=== PATIENT | male | born 1990 ===

== ENCOUNTER 2017-08-27 17:27 | Inpatient (IN) | payer OTHER ==
[2017-08-27] MEDS ORDERED: Sodium Chloride 0.9% 1,000 ML IV STA ×2 (18:25→18:46)
--- NOTE | 2017-08-27 18:47 | ED PDOC ---
HPI:Nausea, Vomiting, Diarrhea Time Seen by Provider: 08/27/17 18:25 Chief Complaint (Nursing): Abdominal Pain Chief Complaint (Provider): Fevers, Chill and Nausea History Per: Patient History/Exam Limitations: no limitations Onset/Duration Of Symptoms: Days (x4 days) Current Symptoms Are (Timing): Still Present Associated Symptoms: Fever, Chills, Nausea, Vomiting (x2 episodes). denies: Diarrhea Additional Complaint(s): Parish Stevenson, a 27 year old male, presents to the ED for fever, chills and nausea x4 days. The patient states that he is also experiencing some mild epigastric pain and has 2 episodes of vomiting. Denies diarrhea, cough, neck pain. Patient requests a note for work. Past Medical History Reviewed: Historical Data, Nursing Documentation, Vital Signs Vital Signs: Last Vital Signs Temp 102.2 F H 08/27/17 18:06 Pulse 112 H 08/27/17 18:06 Resp 16 08/27/17 18:06 BP 174/119 H 08/27/17 18:06 Pulse Ox 98 08/27/17 18:06 - Medical History PMH: No Chronic Diseases - Surgical History Surgical History: No Surg Hx - Family History Family History: States: Unknown Family Hx - Allergies Allergies/Adverse Reactions: Allergies Allergy/AdvReac Type Severity Reaction Status Date / Time No Known Allergies Allergy Verified 08/27/17 18:10 Review of Systems ROS Statement: Except As Marked, All Systems Reviewed And Found Negative Constitutional: Positive for: Fever, Chills Respiratory: Negative for: Cough Gastrointestinal: Positive for: Nausea, Vomiting (x2 episodes), Abdominal Pain ( mild epigastric pain). Negative for: Diarrhea Musculoskeletal: Negative for: Neck Pain Physical Exam - Reviewed Nursing Documentation Reviewed: Yes Vital Signs Reviewed: Yes - Physical Exam Appears: Positive for: Non-toxic, No Acute Distress Head Exam: Positive for: ATRAUMATIC, NORMAL INSPECTION, NORMOCEPHALIC Skin: Positive for: Warm, Dry. Negative for: Normal Color (Skin appears flushed in face ), Rash Eye Exam: Positive for: Normal appearance, EOMI, PERRL. Negative for: Nystagmus ENT: Positive for: Normal ENT Inspection. Negative for: Nasal Congestion, Tonsillar Exudate, Tonsillar Swelling Neck: Positive for: Normal, Painless ROM, Supple Cardiovascular/Chest: Positive for: Regular Rate, Rhythm, Chest Non Tender. Negative for: Tachycardia Respiratory: Positive for: Normal Breath Sounds. Negative for: Crackles, Rales , Rhonchi, Wheezing, Respiratory Distress Gastrointestinal/Abdominal: Positive for: Normal Exam, Bowel Sounds, Soft. Negative for: Tenderness, Mass, Guarding, Rebound Back: Positive for: Normal Inspection. Negative for: L CVA Tenderness, R CVA Tenderness Extremity: Positive for: Normal ROM. Negative for: Tenderness, Deformity, Swelling Lymphatic: Positive for: Normal Exam. Negative for: Adenopathy Neurologic/Psych: Positive for: Alert, Oriented, Gait - Laboratory Results Result Diagrams: 08/27/17 18:58 08/27/17 18:58 - ECG O2 Sat by Pulse Oximetry: 98 - Progress ED Course And Treament: NS 2 LITERS ORDERED. REPEAT BS 272 VBG REVIEWED WITH . 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 Provider Attestation All medical record entries made by the Scribe were at my direction and personally dictated by me. I have reviewed the chart and agree that the record accurately reflects my personal performance of the history, physical exam, medical decision making, and the department course for this patient. I have also personally directed, reviewed, and agree with the discharge instructions and disposition. Disposition - Clinical Impression Clinical Impression: Diabetes mellitus, new onset - Patient ED Disposition Is Patient to be Admitted: Yes - Disposition Disposition Time: 20:12 Condition: FAIR Forms: Spyder Lynk (Hungarian) - Pt Status Changed To: Hospital Disposition Of: Inpatient - Admit Certification Admit to Inpatient:: After my assessment, the patient will require hospitalization for at least two midnights. This is because of the severity of symptoms shown, intensity of services needed, and/or the medical risk in this patient being treated as an outpatient.
[2017-08-27 18:58] LABS: RBC URINE 2 /hpf (0-3); URINE BILIRUBIN NEGATIVE (NEGATIVE); URINE BLOOD SMALL (NEGATIVE); URINE COLOR STRAW (YELLOW); URINE GLUCOSE (UA) >=500 mg/dL (Normal); URINE KETONE 20 mg/dL (NEGATIVE); URINE LEUKOCYTE ESTERASE NEG Leu/uL (Negative); URINE PROTEIN NEGATIVE (NEGATIVE); WBC URINE 1 /hpf (0-5)
[2017-08-27 19:02] LABS: BASO # 0.1 K/uL (0.0-0.2); BASO % 0.5 % (0.0-2.0); EOS # 0.1 K/uL (0.0-0.7); EOS % 0.7 % (0.0-4.0); HEMATOCRIT 42.3 % (35.0-51.0); LYMPH % 19.9 % (20.0-40.0); MEAN CELL VOLUME 90.7 fl (80.0-94.0); MEAN CORPUSCULAR HEMOGLOBIN 31.2 pg (27.0-31.0); MEAN CORPUSCULAR HGB CONC 34.4 g/dL (33.0-37.0); MEAN PLATELET VOLUME 10.1 fl (7.2-11.7); MONO # 0.7 K/uL (0.0-0.8); MONO % 6.7 % (0.0-10.0); NEUT # 7.1 K/uL (1.8-7.0); NEUT % 72.2 % (50.0-75.0); RED CELL DISTRIBUTION WIDTH 13.5 % (11.5-14.5); WHITE BLOOD COUNT 9.8 K/uL (4.8-10.8)
[2017-08-27 19:10] LABS: VENOUS BLOOD GAS BASE EXCESS -1.1 mmol/L (0.0-2.0); VENOUS BLOOD GAS PCO2 33 mmHg (40-60); VENOUS BLOOD PH 7.44 (7.32-7.43)
[2017-08-27 19:58] LABS: ALB/GLOB RATIO 1.1 (1.0-2.1); ALKALINE PHOSPHATASE 226 U/L (38-126); ALT/SGPT 133 U/L (21-72); AST/SGOT 76 U/L (17-59); BILIRUBIN,TOTAL 1.1 mg/dl (0.2-1.3); BLOOD UREA NITROGEN 12 mg/dl (9-20); CALCIUM 10.4 mg/dL (8.4-10.2); CARBON DIOXIDE 21 mmol/L (22-30); CHLORIDE 94 mmol/L (98-107); GFR AFRICAN-AMERICAN > 60; GLUCOSE,RANDOM 413 mg/dL (75-110); LIPASE 92 U/L (23-300); POTASSIUM 4.5 MMOL/L (3.6-5.0); SODIUM 132 mmol/l (132-148); TOTAL PROTEIN 9.5 G/DL (6.3-8.2)
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
[2017-08-27] MEDS ORDERED: Sodium Chloride 0.9% 1,000 ML IV SCH (20:45)
[2017-08-27] MEDS ORDERED: Dextrose 50% SYRINGE Inj (50 ml) IVP PRN (20:52)
[2017-08-27] MEDS ORDERED: Glucagon Recombinant 1 mg Inj IM PRN (20:52)
[2017-08-27 21:54] LABS: THYROID STIMULATING HORMONE 1.34 mIU/ML (0.46-4.68)
[2017-08-27] MEDS ORDERED: Insulin Regular 100 units/ml SC SCH (23:00)
[2017-08-28] MEDS ORDERED: Sodium Chloride 0.45% 1,000 ML IV SCH (01:00)
[2017-08-28 07:03] LABS: HEMATOCRIT 38.4 % (35.0-51.0); MEAN CELL VOLUME 91.6 fl (80.0-94.0); MEAN CORPUSCULAR HEMOGLOBIN 31.2 pg (27.0-31.0); MEAN CORPUSCULAR HGB CONC 34.1 g/dL (33.0-37.0); RED CELL DISTRIBUTION WIDTH 13.6 % (11.5-14.5); WHITE BLOOD COUNT 7.9 K/uL (4.8-10.8)
[2017-08-28 07:14] LABS: BLOOD UREA NITROGEN 8 mg/dl (9-20); CALCIUM 9.1 mg/dL (8.4-10.2); CARBON DIOXIDE 24 mmol/L (22-30); CHLORIDE 104 mmol/L (98-107); GFR AFRICAN-AMERICAN > 60; GLUCOSE,RANDOM 184 mg/dL (75-110); SODIUM 138 mmol/l (132-148)
[2017-08-28] MEDS: Insulin Lispro (humaLOG) 100 Units/ml Inj SC SCH ×4 (08:36→22:59)
--- NOTE | 2017-08-28 11:36 | CP.PCM.DIS ---
Provider - Provider Date of Admission: 08/27/17 20:10 Attending physician: Jie Melara MD Hospital Course - Lab Results Lab Results: Most Recent Lab Values WBC 7.9 K/uL (4.8-10.8) 08/28/17 05:20 RBC 4.20 Mil/uL (4.40-5.90) L 08/28/17 05:20 Hgb 13.1 g/dL (12.0-18.0) 08/28/17 05:20 Hct 38.4 % (35.0-51.0) 08/28/17 05:20 MCV 91.6 fl (80.0-94.0) 08/28/17 05:20 MCH 31.2 pg (27.0-31.0) H 08/28/17 05:20 MCHC 34.1 g/dL (33.0-37.0) 08/28/17 05:20 RDW 13.6 % (11.5-14.5) 08/28/17 05:20 Plt Count 99 K/uL (130-400) L 08/28/17 05:20 MPV 10.1 fl (7.2-11.7) 08/27/17 18:58 Neut % (Auto) 72.2 % (50.0-75.0) 08/27/17 18:58 Lymph % (Auto) 19.9 % (20.0-40.0) L 08/27/17 18:58 [place] % (Auto) 6.7 % (0.0-10.0) 08/27/17 18:58 Eos % (Auto) 0.7 % (0.0-4.0) 08/27/17 18:58 Baso % (Auto) 0.5 % (0.0-2.0) 08/27/17 18:58 Neut # 7.1 K/uL (1.8-7.0) H 08/27/17 18:58 Lymph # 2.0 K/uL (1.0-4.3) 08/27/17 18:58 [place] # 0.7 K/uL (0.0-0.8) 08/27/17 18:58 Eos # 0.1 K/uL (0.0-0.7) 08/27/17 18:58 Baso # 0.1 K/uL (0.0-0.2) 08/27/17 18:58 pO2 50 mm/Hg (30-55) 08/27/17 19:02 VBG pH 7.44 (7.32-7.43) H 08/27/17 19:02 VBG pCO2 33 mmHg (40-60) L 08/27/17 19:02 VBG HCO3 23.8 mmol/L 08/27/17 19:02 VBG Total CO2 23.4 mmol/L (22-28) 08/27/17 19:02 VBG O2 Sat (Calc) 92.3 % (40-65) H 08/27/17 19:02 VBG Base Excess -1.1 mmol/L (0.0-2.0) L 08/27/17 19:02 VBG Potassium 3.6 mmol/L (3.6-5.2) 08/27/17 19:02 Sodium 131.0 mmol/L (132-148) L 08/27/17 19:02 Chloride 95.0 mmol/L (98-107) L 08/27/17 19:02 Glucose 382 mg/dL (75-110) H 08/27/17 19:02 Lactate 1.5 mmol/L (0.7-2.1) 08/27/17 19:02 FiO2 21.0 % 08/27/17 19:02 Sodium 138 mmol/l (132-148) 08/28/17 05:20 Potassium 4.0 MMOL/L (3.6-5.0) 08/28/17 05:20 Chloride 104 mmol/L (98-107) 08/28/17 05:20 Carbon Dioxide 24 mmol/L (22-30) 08/28/17 05:20 Anion Gap 14 (10-20) 08/28/17 05:20 BUN 8 mg/dl (9-20) L 08/28/17 05:20 Creatinine 0.5 mg/dl (0.8-1.5) L 08/28/17 05:20 Est GFR ( Amer) > 60 08/28/17 05:20 Est GFR (Non-Af Amer) > 60 08/28/17 05:20 POC Glucose (mg/dL) 258 mg/dL (65-110) H 08/28/17 11:03 Random Glucose 184 mg/dL (75-110) H 08/28/17 05:20 Calcium 9.1 mg/dL (8.4-10.2) 08/28/17 05:20 Total Bilirubin 1.1 mg/dl (0.2-1.3) 08/27/17 18:58 AST 76 U/L (17-59) H 08/27/17 18:58 ALT 133 U/L (21-72) H 08/27/17 18:58 Alkaline Phosphatase 226 U/L (38-126) H 08/27/17 18:58 Total Protein 9.5 G/DL (6.3-8.2) H 08/27/17 18:58 Albumin 4.8 g/dL (3.5-5.0) 08/27/17 18:58 Globulin 4.6 gm/dL (2.2-3.9) H 08/27/17 18:58 Albumin/Globulin Ratio 1.1 (1.0-2.1) 08/27/17 18:58 Triglycerides 233 mg/DL (0-149) H 08/27/17 21:03 Cholesterol 259 mg/dL (0-199) H 08/27/17 21:03 LDL Cholesterol Direct 172 mg/dL (0-129) H 08/27/17 21:03 HDL Cholesterol 57 MG/DL (30-70) 08/27/17 21:03 Lipase 92 U/L (23-300) 08/27/17 18:58 TSH 3rd Generation 1.34 mIU/ML (0.46-4.68) 08/27/17 21:03 Venous Blood Potassium 3.6 mmol/L (3.6-5.2) 08/27/17 19:02 Urine Color Straw (YELLOW) 08/27/17 18:45 Urine Clarity Clear (Clear) 08/27/17 18:45 Urine pH 6.0 (5.0-8.0) 08/27/17 18:45 Ur Specific [place] 1.029 (1.003-1.030) 08/27/17 18:45 Urine Protein Negative mg/dL (NEGATIVE) 08/27/17 18:45 Urine Glucose (UA) >=500 mg/dL (Normal) 08/27/17 18:45 Urine Ketones 20 mg/dL (NEGATIVE) 08/27/17 18:45 Urine Blood Small (NEGATIVE) 08/27/17 18:45 Urine Nitrate Negative (NEGATIVE) 08/27/17 18:45 Urine Bilirubin Negative (NEGATIVE) 08/27/17 18:45 Urine Urobilinogen 2.0 mg/dL (0.2-1.0) 08/27/17 18:45 Ur Leukocyte Esterase Neg [place]/uL (Negative) 08/27/17 18:45 Urine RBC (Auto) 2 /hpf (0-3) 08/27/17 18:45 Urine Microscopic WBC 1 /hpf (0-5) 08/27/17 18:45 Urine Opiates Screen Negative (NEGATIVE) 08/27/17 22:20 Urine Methadone Screen Negative (NEGATIVE) 08/27/17 22:20 Ur Barbiturates Screen Negative (NEGATIVE) 08/27/17 22:20 Ur Phencyclidine Scrn Negative (NEGATIVE) 08/27/17 22:20 Ur Amphetamines Screen Negative (NEGATIVE) 08/27/17 22:20 U Benzodiazepines Scrn Negative (NEGATIVE) 08/27/17 22:20 U Oth Cocaine Metabols Negative (NEGATIVE) 08/27/17 22:20 U Cannabinoids Screen Negative (NEGATIVE) 08/27/17 22:20 Alcohol, Quantitative < 10 mg/dl (0-10) 08/27/17 22:20 HIV-1 Ab Rapid Screen Non reactive (NON REAC) 08/27/17 22:32 Influenza Typ A,B (EIA) Negative for flu a/b (NEGATIVE) 08/27/17 18:58 Discharge Exam - Head Exam Head Exam: ATRAUMATIC, NORMOCEPHALIC Discharge Plan - Follow Up Plan Condition: FAIR Disposition: HOME/ ROUTINE
[2017-08-28 14:48] LABS: BILIRUBIN,TOTAL 1.3 mg/dl (0.2-1.3); TOTAL PROTEIN 7.9 G/DL (6.3-8.2)
--- NOTE | 2017-08-28 16:17 | CP.PCM.PN ---
Subjective - Date & Time of Evaluation Date of Evaluation: 08/28/17 Time of Evaluation: 10:30 - Subjective Subjective: Pt. seen at bedside lying down awake. Pt. with no complaints at this time. Overnight events reviewed and uneventful. Pt. states he is starting to feel better. Objective - Vital Signs/Intake and Output Vital Signs (last 24 hours): Temp Pulse Resp BP Pulse Ox 98 F 82 20 150/93 H 99 08/28/17 09:00 08/28/17 13:22 08/28/17 09:00 08/28/17 13:22 08/28/17 09:00 - Medications Medications: Current Medications Acetaminophen (Tylenol 325mg Tab) 650 mg PO Q6 PRN PRN Reason: Fever >100.4 F Dextrose (Dextrose 50% Inj) 0 ml IVP STAT PRN; Protocol PRN Reason: Hypoglycemia Protocol Glucagon (Glucagen Diagnostic Kit) 0 mg IM STAT PRN; Protocol PRN Reason: Hypoglycemia Protocol Insulin Human Lispro (Humalog) 0 units SC ACCU-CHECK NELLY PRN Reason: Protocol Last Admin: 08/28/17 13:21 Dose: 3 unit Lisinopril (Zestril) 10 mg PO DAILY [facility] Last Admin: 08/28/17 13:22 Dose: 10 mg Metformin HCl (Glucophage) 500 mg PO BIDWM [facility] Last Admin: 08/28/17 13:22 Dose: 500 mg Ondansetron HCl (Zofran Inj) 4 mg IVP Q6 PRN PRN Reason: Nausea/Vomiting - Labs Labs: 08/28/17 05:20 08/28/17 05:20 - Constitutional Appears: Non-toxic, No Acute Distress - Eye Exam Eye Exam: Normal appearance. absent: Scleral icterus - ENT Exam ENT Exam: Mucous Membranes Moist - Neck Exam Neck Exam: Full ROM - Respiratory Exam Respiratory Exam: Clear to Ausculation Bilateral, NORMAL BREATHING PATTERN - Cardiovascular Exam Cardiovascular Exam: REGULAR RHYTHM, +S1, +S2 - GI/Abdominal Exam GI & Abdominal Exam: Soft. absent: Tenderness - Extremities Exam Extremities Exam: Normal Inspection - Neurological Exam Neurological Exam: Alert, Awake Assessment and Plan - Assessment and Plan (Free Text) Assessment: 27 y.o. male admitted for uncontrolled hyperglycemia of unclear etiology Uncontrolled Hyperlgycemia of unclear etiology possibly Type I vs. Type II DM 1- Start pt. on Metformin 500mg PO BIDWM 2- c/w low dose sliding scale insulin given pt. is Insulin naieve 3- Will get Glutamyl transpeptidase antibodies, Islet cell antibodies, C-peptide 4- A1c pending 5- Acuuchecks Elevated LFT of unclear etiology AST/ALT: 76/133 1- Hepatitis panel pending 2- Will trend LFT's 3- Will consider U/S HTN- Improving still >140/90 1- Will continue Lisinopril 10mg HLD- Total cholesterol >200 1- Hold statin for now given pt. has elevated LFT 2- Will order a.m. LFT's and trend 3- Hepatitis panel is pending 4- If LFTs improve will start statin Fever 1- Resolved DVT prophylaxis 1- SCD while in bed Diet 1- Diabetic
[2017-08-29 07:38] LABS: ALKALINE PHOSPHATASE 201 U/L (38-126); ALT/SGPT 142 U/L (21-72); AST/SGOT 126 U/L (17-59); BLOOD UREA NITROGEN 8 mg/dl (9-20); CALCIUM 9.3 mg/dL (8.4-10.2); CARBON DIOXIDE 24 mmol/L (22-30); CHLORIDE 102 mmol/L (98-107); GFR AFRICAN-AMERICAN > 60; GLUCOSE,RANDOM 237 mg/dL (75-110); POTASSIUM 3.8 MMOL/L (3.6-5.0); SODIUM 139 mmol/l (132-148)
[2017-08-29] MEDS: Insulin Lispro (humaLOG) 100 Units/ml Inj SC SCH ×3 (07:39→16:15)
[2017-08-29 07:46] VITALS: BP 134/79; PULSE 68; RESP 20; TEMP 98; O2SAT 98
--- NOTE | 2017-08-29 09:49 | CP.PCM.PN ---
Subjective - Date & Time of Evaluation Date of Evaluation: 08/29/17 Time of Evaluation: 09:40 Objective - Vital Signs/Intake and Output Vital Signs (last 24 hours): Temp Pulse Resp BP Pulse Ox 98 F 68 20 134/79 98 08/29/17 07:45 08/29/17 07:45 08/29/17 07:45 08/29/17 08:11 08/29/17 07:45 - Medications Medications: Current Medications Acetaminophen (Tylenol 325mg Tab) 650 mg PO Q6 PRN PRN Reason: Fever >100.4 F Dextrose (Dextrose 50% Inj) 0 ml IVP STAT PRN; Protocol PRN Reason: Hypoglycemia Protocol Glucagon (Glucagen Diagnostic Kit) 0 mg IM STAT PRN; Protocol PRN Reason: Hypoglycemia Protocol Insulin Human Lispro (Humalog) 0 units SC ACCU-CHECK NELLY PRN Reason: Protocol Last Admin: 08/29/17 07:39 Dose: 2 unit Lisinopril (Zestril) 10 mg PO DAILY [facility] Last Admin: 08/29/17 08:11 Dose: 10 mg Metformin HCl (Glucophage) 500 mg PO BIDWM [facility] Last Admin: 08/29/17 08:11 Dose: 500 mg Ondansetron HCl (Zofran Inj) 4 mg IVP Q6 PRN PRN Reason: Nausea/Vomiting - Labs Labs: 08/28/17 05:20 08/29/17 05:20
--- NOTE | 2017-08-29 11:42 | US ---
HISTORY: elevated LFTs COMPARISON: None. TECHNIQUE: Sonographic evaluation of the abdomen. FINDINGS: LIVER: Measures 19.2 cm. Mildly increased echogenicity of the liver parenchyma suggest hepatic steatosis. Other infiltrative processes are possible. No mass. No intrahepatic bile duct dilatation. GALLBLADDER: Unremarkable. No gallstones. COMMON BILE DUCT: Measures 5.0 mm. No stones. No dilatation. PANCREAS: The tail of the pancreas is obscured by overlying bowel gas with remainder unremarkable. RIGHT KIDNEY: Measures 12.9cm. Normal echogenicity. No calculus, mass, or hydronephrosis. LEFT KIDNEY: Measures 12.0cm. Normal echogenicity. No calculus, mass, or hydronephrosis. SPLEEN: Normal in size and contour. No mass. AORTA: No aneurysmal dilatation. IVC: Unremarkable. OTHER FINDINGS: None. IMPRESSION: 1. Mild hepatic steatosis. 2. Partial imaging of the pancreas. 3. No cholelithiasis or biliary tree dilatation.
--- NOTE | 2017-08-29 12:25 | CP.PCM.DIS ---
Provider - Provider Date of Admission: 08/28/17 17:39 Attending physician: Jie Melara MD Primary care physician: None, scheduled appointment at [facility] on 08/31/[address] Frost at 1 pm Time Spent in preparation of Discharge (in minutes): 30 Hospital Course - Lab Results Lab Results: Most Recent Lab Values WBC 7.9 K/uL (4.8-10.8) 08/28/17 05:20 RBC 4.20 Mil/uL (4.40-5.90) L 08/28/17 05:20 Hgb 13.1 g/dL (12.0-18.0) 08/28/17 05:20 Hct 38.4 % (35.0-51.0) 08/28/17 05:20 MCV 91.6 fl (80.0-94.0) 08/28/17 05:20 MCH 31.2 pg (27.0-31.0) H 08/28/17 05:20 MCHC 34.1 g/dL (33.0-37.0) 08/28/17 05:20 RDW 13.6 % (11.5-14.5) 08/28/17 05:20 Plt Count 99 K/uL (130-400) L 08/28/17 05:20 MPV 10.1 fl (7.2-11.7) 08/27/17 18:58 Neut % (Auto) 72.2 % (50.0-75.0) 08/27/17 18:58 Lymph % (Auto) 19.9 % (20.0-40.0) L 08/27/17 18:58 Gr[place] % (Auto) 6.7 % (0.0-10.0) 08/27/17 18:58 Eos % (Auto) 0.7 % (0.0-4.0) 08/27/17 18:58 Baso % (Auto) 0.5 % (0.0-2.0) 08/27/17 18:58 Neut # 7.1 K/uL (1.8-7.0) H 08/27/17 18:58 Lymph # 2.0 K/uL (1.0-4.3) 08/27/17 18:58 Grimes # 0.7 K/uL (0.0-0.8) 08/27/17 18:58 Eos # 0.1 K/uL (0.0-0.7) 08/27/17 18:58 Baso # 0.1 K/uL (0.0-0.2) 08/27/17 18:58 pO2 50 mm/Hg (30-55) 08/27/17 19:02 VBG pH 7.44 (7.32-7.43) H 08/27/17 19:02 VBG pCO2 33 mmHg (40-60) L 08/27/17 19:02 VBG HCO3 23.8 mmol/L 08/27/17 19:02 VBG Total CO2 23.4 mmol/L (22-28) 08/27/17 19:02 VBG O2 Sat (Calc) 92.3 % (40-65) H 08/27/17 19:02 VBG Base Excess -1.1 mmol/L (0.0-2.0) L 08/27/17 19:02 VBG Potassium 3.6 mmol/L (3.6-5.2) 08/27/17 19:02 Sodium 131.0 mmol/L (132-148) L 08/27/17 19:02 Chloride 95.0 mmol/L (98-107) L 08/27/17 19:02 Glucose 382 mg/dL (75-110) H 08/27/17 19:02 Lactate 1.5 mmol/L (0.7-2.1) 08/27/17 19:02 FiO2 21.0 % 08/27/17 19:02 Sodium 139 mmol/l (132-148) 08/29/17 05:20 Potassium 3.8 MMOL/L (3.6-5.0) 08/29/17 05:20 Chloride 102 mmol/L (98-107) 08/29/17 05:20 Carbon Dioxide 24 mmol/L (22-30) 08/29/17 05:20 Anion Gap 17 (10-20) 08/29/17 05:20 BUN 8 mg/dl (9-20) L 08/29/17 05:20 Creatinine 0.4 mg/dl (0.8-1.5) L 08/29/17 05:20 Est GFR ( Amer) > 60 08/29/17 05:20 Est GFR (Non-Af Amer) > 60 08/29/17 05:20 POC Glucose (mg/dL) 305 mg/dL (65-110) H 08/29/17 10:41 Random Glucose 237 mg/dL (75-110) H 08/29/17 05:20 Hemoglobin A1c 12.5 % (4.2-6.5) H 08/27/17 21:03 Calcium 9.3 mg/dL (8.4-10.2) 08/29/17 05:20 Total Bilirubin 1.0 mg/dl (0.2-1.3) 08/29/17 05:20 Direct Bilirubin 0.6 mg/ml (0.0-0.4) H 08/28/17 14:36 GGT 1134 U/L (8-78) H 08/27/17 21:03 AST 126 U/L (17-59) H D 08/29/17 05:20 ALT 142 U/L (21-72) H D 08/29/17 05:20 Alkaline Phosphatase 201 U/L (38-126) H D 08/29/17 05:20 Total Protein 8.0 G/DL (6.3-8.2) 08/29/17 05:20 Albumin 4.1 g/dL (3.5-5.0) 08/29/17 05:20 Globulin 3.9 gm/dL (2.2-3.9) 08/29/17 05:20 Albumin/Globulin Ratio 1.0 (1.0-2.1) 08/29/17 05:20 Triglycerides 233 mg/DL (0-149) H 08/27/17 21:03 Cholesterol 259 mg/dL (0-199) H 08/27/17 21:03 LDL Cholesterol Direct 172 mg/dL (0-129) H 08/27/17 21:03 HDL Cholesterol 57 MG/DL (30-70) 08/27/17 21:03 Lipase 92 U/L (23-300) 08/27/17 18:58 TSH 3rd Generation 1.34 mIU/ML (0.46-4.68) 08/27/17 21:03 Venous Blood Potassium 3.6 mmol/L (3.6-5.2) 08/27/17 19:02 Urine Color Straw (YELLOW) 08/27/17 18:45 Urine Clarity Clear (Clear) 08/27/17 18:45 Urine pH 6.0 (5.0-8.0) 08/27/17 18:45 Ur Specific [place] 1.029 (1.003-1.030) 08/27/17 18:45 Urine Protein Negative mg/dL (NEGATIVE) 08/27/17 18:45 Urine Glucose (UA) >=500 mg/dL (Normal) 08/27/17 18:45 Urine Ketones 20 mg/dL (NEGATIVE) 08/27/17 18:45 Urine Blood Small (NEGATIVE) 08/27/17 18:45 Urine Nitrate Negative (NEGATIVE) 08/27/17 18:45 Urine Bilirubin Negative (NEGATIVE) 08/27/17 18:45 Urine Urobilinogen 2.0 mg/dL (0.2-1.0) 08/27/17 18:45 Ur Leukocyte Esterase Neg Yamilet/uL (Negative) 08/27/17 18:45 Urine RBC (Auto) 2 /hpf (0-3) 08/27/17 18:45 Urine Microscopic WBC 1 /hpf (0-5) 08/27/17 18:45 Urine Opiates Screen Negative (NEGATIVE) 08/27/17 22:20 Urine Methadone Screen Negative (NEGATIVE) 08/27/17 22:20 Ur Barbiturates Screen Negative (NEGATIVE) 08/27/17 22:20 Ur Phencyclidine Scrn Negative (NEGATIVE) 08/27/17 22:20 Ur Amphetamines Screen Negative (NEGATIVE) 08/27/17 22:20 U Benzodiazepines Scrn Negative (NEGATIVE) 08/27/17 22:20 U Oth Cocaine Metabols Negative (NEGATIVE) 08/27/17 22:20 U Cannabinoids Screen Negative (NEGATIVE) 08/27/17 22:20 Alcohol, Quantitative < 10 mg/dl (0-10) 08/27/17 22:20 Hepatitis A IgM Ab Negative (NEGATIVE) 08/27/17 09:00 Hep Bs Antigen Negative (NEGATIVE) 08/27/17 09:00 Hep B Core IgM Ab Negative (NEGATIVE) 08/27/17 09:00 Hepatitis C Antibody Negative (NEGATIVE) 08/27/17 09:00 HIV-1 Ab Rapid Screen Non reactive (NON REAC) 08/27/17 22:32 Influenza Typ A,B (EIA) Negative for flu a/b (NEGATIVE) 08/27/17 18:58 - Hospital Course Hospital Course: 27 yo male w/ no significant PMH presents to [facility] ED w/ fever, nausea, vomiting , anorexia and fatigue. On ED, his glucose was 413. Pt was admitted for hyperglycemia and febrile illness. Pt's glucose was stablized and fever resolved. Pt is newly diagnosed DM and HbA1C 12.5. Due to pt's age, COLTEN-65 ab, c -peptide and islet cell abs sent. Pt is sent home w/ metformin 1000 mg PO BID and lisinopril 10 mg qd for HTN. Pt's cholesterol shows TC 259, LDL 172, HDL 57 , Trig. 233. Due to elevated LFT's lipid lowering agent was not started. Pt had elevated LFT's (AST 126, ALT 142, ALP 201). Abdominal US showed mild hepatic steatosis. Hepatitis panel was negative. Discharge Exam - Head Exam Head Exam: ATRAUMATIC, NORMOCEPHALIC - ENT Exam ENT Exam: Mucous Membranes Moist - Neck Exam Neck exam: Full Rom, Normal Inspection - Respiratory Exam Respiratory Exam: Clear to PA & Lateral. absent: Rales, Rhonchi, Wheezes, Respiratory Distress - Cardiovascular Exam Cardiovascular Exam: REGULAR RHYTHM, RRR, +S1, +S2 - GI/Abdominal Exam GI & Abdominal Exam: Normal Bowel Sounds, Soft. absent: Tenderness - Extremities Exam Extremities exam: normal capillary refill - Neurological Exam Neurological exam: Alert, Normal Gait, Oriented x3 - Psychiatric Exam Psychiatric exam: Normal Affect, Normal Mood Discharge Plan - Discharge Medications Prescriptions: MetFORMIN [glucoPHAGE] 1,000 mg PO BID #60 tab - Follow Up Plan Condition: FAIR Disposition: HOME/ ROUTINE Instructions: How to Check Your Blood Sugar (GEN)
== END 2017-08-29 17:00 | disposition home or self-care (01) | DRG 295 ==
LOC: H.ER 17:27 → H.ERHOLD 20:10 → H.MEDSURG1 21:40 → OBSVTOIN 08-28 17:39
PROVIDERS: ADMIT Family Medicine; ATTEND Family Medicine
DX: E11.65 Type 2 diabetes mellitus with hyperglycemia (principal); D69.6 Thrombocytopenia, unspecified; K76.0 Fatty (change of) liver, not elsewhere classified; E66.9 Obesity, unspecified; E78.5 Hyperlipidemia, unspecified; I10 Essential (primary) hypertension; Z79.84 Long term (current) use of oral hypoglycemic drugs; Z79.899 Other long term (current) drug therapy; Z83.3 Family history of diabetes mellitus; R10.13 Epigastric pain

== ENCOUNTER 2018-09-05 04:59 | Emergency (ER) | payer SELFPAY ==
[2018-09-05 05:00] VITALS: BMI 24.2
[2018-09-05 05:18] VITALS: BP 152/89; PULSE 99; RESP 16; TEMP 97.5; O2SAT 100
== END 2018-09-05 05:25 | disposition left against medical advice (07) ==
LOC: H.ER 04:59
DX: Z02.89 Encounter for other administrative examinations (principal)